=== PATIENT | male | born 1940 | race Caucasian/White ===

== ENCOUNTER 2019-07-23 18:03 | Emergency (ER) | payer MEDICARE ==
[2019-07-23 18:13] VITALS: BP 158/93; PULSE 91
--- NOTE | 2019-07-23 18:19 | EDM.PDOC ---
ED HPI GENERAL MEDICAL PROBLEM - General Chief Complaint: Laceration Stated Complaint: LEFT POINTER FINGER LACERATION Time Seen by Provider: 07/23/19 18:15 - History of Present Illness INITIAL COMMENTS - FREE TEXT/NARRATIVE: 78-year-old male presents the emergency room with a laceration to his left index finger. Shortly before arrival the patient was using a narrow grinding wheel to cut an old josafat bolt and managed to cut the dorsum of his finger. It bled quite a bit initially but keeping a dressing over this did help slow this down. Patient has no other injuries with this unfortunate event. He is not entirely sure when his last tetanus shot was. Finger-Index Pain Score (Numeric/FACES): 2 - Related Data Allergies Allergy/AdvReac Type Severity Reaction Status Date / Time Penicillins Allergy Rash Verified 07/23/19 18:13 atorvastatin AdvReac Muscle Verified 07/23/19 18:13 Aches glipizide AdvReac Fatigue Verified 07/23/19 18:13 metformin AdvReac Muscle Verified 07/23/19 18:13 Aches pravastatin AdvReac Muscle Verified 07/23/19 18:13 Aches rosuvastatin AdvReac Muscle Verified 07/23/19 18:13 Aches simvastatin AdvReac Muscle Verified 07/23/19 18:13 Aches Home Meds: Home Meds Aspirin [Halfprin] 81 mg PO DAILY 12/16/13 [History] Fish Oil/[place]-3 Fatty Acids [Fish Oil 1,000 MG] 1,000 mg PO BID 12/16/13 [ History] Lisinopril 20 mg PO DAILY 12/16/13 [History] Multivitamin [Multivitamins] 1 tab PO DAILY 12/16/13 [History] Omeprazole [Prilosec] 20 mg PO DAILY 12/16/13 [History] Tamsulosin HCl [Flomax] 0.4 mg PO DAILY #15 cap.er.24h 04/17/16 [Rx] glipiZIDE [Glucotrol XL] 5 mg PO BID 04/17/16 [History] Past Medical History Cardiovascular History: Reports: High Cholesterol, Hypertension Gastrointestinal History: Reports: GERD Musculoskeletal History: Reports: Osteoarthritis Psychiatric History: Reports: Anxiety Endocrine/Metabolic History: Reports: Diabetes, Type II - Past Surgical History HEENT Surgical History: Reports: Cataract Surgery Musculoskeletal Surgical History: Reports: Other (See Below) Social & Family History - Caffeine Use Caffeine Use: Reports: Coffee - Living Situation & Occupation Living situation: Reports: , Alone Occupation: Retired ED ROS GENERAL - Review of Systems Review Of Systems: See Below Constitutional: Reports: No Symptoms Respiratory: Reports: No Symptoms Cardiovascular: Reports: No Symptoms GI/Abdominal: Reports: No Symptoms Musculoskeletal: Reports: Hand Pain ED EXAM, SKIN/RASH Exam: See Below Exam Limited By: No Limitations General Appearance: Alert, No Apparent Distress Respiratory/Chest: No Respiratory Distress, Lungs Clear, Normal Breath Sounds Cardiovascular: Regular Rate, Rhythm, No Edema, No Murmur Extremities: Other (Examination of his left hand shows laceration 3 cm over the dorsum of the left index finger. This is obliquely oriented. It extends over the proximal interphalangeal joint to over the distal interphalangeal joint. Ulnar aspect has some numbness that may be attributed to this recent injury vascular status appears to be okay he is got arthritic changes over his knuckles.) ED SKIN PROCEDURES - Laceration/Wound Repair Left Digit - 2nd (Index) Appearance: Subcutaneous, Mildly Contaminated Distal NVT: No Tendon Injury, Other (On the ulnar aspect he may have a neurologic deficit secondary to the injury) Anesthetic Type: Digital Local Anesthesia - Lidocaine (Xylocaine): 1% Plain Local Anesthetic Volume: 2cc Skin Prep: Saline Exploration/Debridement/Repair: Wound Explored, In a Bloodless Field, Explored to Base Lac/Wound length In cm: 3 Suture Size: 4-0 # of Sutures: 5 Suture Type: Mattress (Horizontal mattress stitches were placed good wound approximation) Tetanus Status Addressed: Yes (Updated) Complications: No Progress/Comments: Patient had an oblique 3 cm laceration that extended over the dorsum of the proximal interphalangeal joint to just distal to the distal interphalangeal joint. The patient has some scar type tissue in there and he has arthritic changes at his knuckles that required some adjustment of the suture placement. Overall the patient had a good repair he lost some tissue secondary to the with the grinding wheel. But this should heal up just fine Course - Vital Signs Last Recorded V/S: Last Vital Signs Temp 36.6 C 07/23/19 18:10 Pulse 91 07/23/19 18:10 Resp 18 07/23/19 18:10 BP 158/93 H 07/23/19 18:10 Pulse Ox 94 L 07/23/19 18:10 - Orders/Labs/Meds Orders: Active Orders 24 hr Category Date Time Status Vaccines to be Administered [RC] PER UNIT ROUTINE Care 07/23/19 18:25 Active Meds: Medications Discontinued Medications Generic Name Dose Route Start Last Admin Trade Name Jeannine PRN Reason Stop Dose Admin Diphtheria/Tetanus/Acell Pertussis 0.5 ml 07/23/19 18:25 07/23/19 18:31 Adacel IM 07/23/19 18:26 0.5 ml .ONCE ONE Administration Lidocaine HCl 10 ml 07/23/19 18:26 07/23/19 18:31 Xylocaine 1% INJECT 07/23/19 18:27 10 ml ONETIME ONE Administration Departure - Departure Time of Disposition: 19:02 Disposition: Home, Self-Care 01 Clinical Impression: Laceration of index finger - Discharge Information Referrals: Hardy Fatima MD [Primary Care Provider] - Forms: ED Department Discharge Additional Instructions: Return to the emergency room with any questions problems or concerning symptoms. Return with any signs of infection. Keep the wound site absolutely clean and dry for minimum of 48 hours. After this he can let water gently run over the area but only for a few seconds then gently dab dry. Suture removal in 12 days. You were placed in a splint I would use this all the time for the next week and then during activity after that. Sepsis Event Note - Evaluation Sepsis Screening Result: No Definite Risk - Focused Exam Vital Signs: Vital Signs Temp Pulse Resp BP Pulse Ox 07/23/19 18:10 36.6 C 91 18 158/93 H 94 L Date Exam was Performed: 07/23/19 Time Exam was Performed: 19:06 - My Orders Last 24 Hours: My Active Orders 07/23/19 18:25 Vaccines to be Administered [RC] PER UNIT ROUTINE - Assessment/Plan Last 24 Hours: My Active Orders 07/23/19 18:25 Vaccines to be Administered [RC] PER UNIT ROUTINE
[2019-07-23] MEDS ORDERED: Diphtheria,Pertussis(Acell),Tetanus Vaccine 0.5 ML Syringe IM ONE (18:25)
[2019-07-23] MEDS ORDERED: Lidocaine 1% 10 ML MDV INJECT ONE (18:26)
== END 2019-07-23 19:10 | disposition home or self-care (01) ==
LOC: JD.ED 18:03
DX: S61.211A Laceration without foreign body of left index finger without damage to nail, initial encounter (principal); Z23 Encounter for immunization; E11.9 Type 2 diabetes mellitus without complications; I10 Essential (primary) hypertension; K21.9 Gastro-esophageal reflux disease without esophagitis; E78.00 Pure hypercholesterolemia, unspecified; Z79.82 Long term (current) use of aspirin; Z79.899 Other long term (current) drug therapy; Z79.4 Long term (current) use of insulin; Z88.8 Allergy status to other drugs, medicaments and biological substances; W26.8XXA Contact with other sharp object(s), not elsewhere classified, initial encounter
CPT/HCPCS: 12002; 90471; 90715; 99283; J2001; 99282

== ENCOUNTER 2020-05-02 19:32 | Emergency (ER) | payer MEDICARE ==
[2020-05-02 19:50] VITALS: BP 165/91; PULSE 114
[2020-05-02] MEDS ORDERED: Ondansetron 4 MG Tab.DIS PO ONE (19:55)
[2020-05-02] MEDS ORDERED: predniSONE 20 MG Tab PO ONE (19:56)
[2020-05-02] MEDS ORDERED: Azithromycin 200 MG/5 ML Susp 30 ML Bottle PO ONE (19:57)
[2020-05-02] MEDS ORDERED: Azithromycin 250 MG Tab PO ONE (19:59)
--- NOTE | 2020-05-02 20:36 | EDM.PDOC ---
ED HPI GENERAL MEDICAL PROBLEM - General Chief Complaint: General Stated Complaint: COUGH WEAK CONGESTION Time Seen by Provider: 05/02/20 20:11 Source of Information: Reports: Patient History Limitations: Reports: No Limitations - History of Present Illness INITIAL COMMENTS - FREE TEXT/NARRATIVE: Mr. Raya is a pleasant 79-year-old gentleman who now presents the ED stating that he has had 2 days of a decreased appetite, nausea without emesis, and a cough productive of dark yellow sputum. No recent fever. No vomiting or diarrhea. The patient also reports that he has had about 2 weeks of "decreased motivation". The patient states that he has been taking both Robitussin and cough drops, both of which have been helping with his cough. The patient went on to say that he received a letter from the [facility] that if he went down there, he could receive the COVID vaccine. It appears that the patient thought he could come to this ED to get the vaccine, stating "It's a long way down there." Here in the ED, the patient's initial BP is found to be elevated at 165/91, with a tachycardia of 114 bpm. He is afebrile, saturating 97% on room air. Prior to 2 days ago, the patient denies having a recent fever, chills, sore throat, ear pain, nasal or sinus congestion, cough, dyspnea, chest pain, palpitations, nausea, vomiting, constipation, diarrhea, abdominal pain, urinary symptoms, recent weight gain or weight loss, recent bloody bowel movements or black bowel movements, recent joint aches, headaches, or rashes. The patient's PCP is Dr. Hardy Fatima, however, he also goes to the [facility]. He states that he received an influenza vaccine in December 2019. - Related Data Allergies Allergy/AdvReac Type Severity Reaction Status Date / Time Penicillins Allergy Rash Verified 05/02/20 19:51 atorvastatin AdvReac Muscle Verified 05/02/20 19:51 Aches glipizide AdvReac Fatigue Verified 05/02/20 19:51 metformin AdvReac Muscle Verified 05/02/20 19:51 Aches pravastatin AdvReac Muscle Verified 05/02/20 19:51 Aches rosuvastatin AdvReac Muscle Verified 05/02/20 19:51 Aches simvastatin AdvReac Muscle Verified 05/02/20 19:51 Aches Home Meds: Home Meds Aspirin [Halfprin] 81 mg PO DAILY 12/16/13 [History] Fish Oil/[place]-3 Fatty Acids [Fish Oil 1,000 MG] 1,000 mg PO BID 12/16/13 [History] Lisinopril 20 mg PO DAILY 12/16/13 [History] Multivitamin [Multivitamins] 1 tab PO DAILY 12/16/13 [History] Omeprazole [Prilosec] 20 mg PO DAILY 12/16/13 [History] Tamsulosin HCl [Flomax] 0.4 mg PO DAILY #15 cap.er.24h 04/17/16 [Rx] glipiZIDE [Glucotrol XL] 5 mg PO BID 04/17/16 [History] Past Medical History Cardiovascular History: Reports: High Cholesterol, Hypertension Gastrointestinal History: Reports: GERD Genitourinary History: Reports: BPH Musculoskeletal History: Reports: Osteoarthritis Psychiatric History: Reports: Anxiety Endocrine/Metabolic History: Reports: Diabetes, Type II - Infectious Disease History Infectious Disease History: Reports: Chicken Pox, Measles, Mumps - Past Surgical History HEENT Surgical History: Reports: Cataract Surgery (right only) GI Surgical History: Reports: Colonoscopy (x 5 or 6) Social & Family History - Tobacco Use Tobacco Use Status *Q: Never Tobacco User Second Hand Smoke Exposure: No - Caffeine Use Caffeine Use: Reports: Coffee - Alcohol Use Alcohol Use History: Yes Alcohol Use Frequency: Rarely - Recreational Drug Use Recreational Drug Use: No - Living Situation & Occupation Living situation: Reports: , Alone Occupation: Retired ED ROS GENERAL - Review of Systems Review Of Systems: Comprehensive ROS is negative, except as noted in HPI. ED EXAM, GENERAL - Physical Exam Exam: See Below Exam Limited By: No Limitations General Appearance: Alert, WD/WN, No Apparent Distress Eye Exam: Bilateral Eye: EOMI, Normal Inspection Ears: Normal External Exam, Hearing Grossly Normal Nose: Normal Inspection Throat/Mouth: Normal Inspection, Normal Lips, Normal Voice, No Airway Compromise Head: Atraumatic, Normocephalic Neck: Normal Inspection, Full Range of Motion Respiratory/Chest: No Respiratory Distress, Lungs Clear, Normal Breath Sounds, No Accessory Muscle Use. No: Decreased Breath Sounds, Crackles, Rhonchi, Wheezing, Stridor, Prolonged Expiration Cardiovascular: Normal Peripheral Pulses, No Edema, No Gallop, No JVD, No Murmur, No Rub, Tachycardia (regular) Peripheral Pulses: 3+: Radial (L), Radial (R) GI/Abdominal: Normal Bowel Sounds, Soft, Non-Tender, No Organomegaly, No Distention, No Abnormal Bruit, No Mass Back Exam: Normal Inspection, Full Range of Motion, NT Extremities: Normal Inspection, Normal Range of Motion, No Pedal Edema, Normal Capillary Refill Neurological: Alert, Oriented, CN II-XII Intact, Normal Cognition, No Motor/Sensory Deficits Psychiatric: Normal Affect Skin Exam: Warm, Dry, Intact, Normal Color, No Rash Course - Vital Signs Last Recorded V/S: Last Vital Signs Temp 37.4 C 05/02/20 19:47 Pulse 114 H 05/02/20 19:47 Resp 20 05/02/20 19:47 BP 165/91 H 05/02/20 19:47 Pulse Ox 97 05/02/20 19:47 - Orders/Labs/Meds Orders: Active Orders 24 hr Category Date Time Status EKG Documentation Completion [RC] STAT Care 05/02/20 20:30 Active Chest 2V [CR] Stat Exams 05/02/20 20:29 Ordered CBC WITH MANUAL DIFF [HEME] Stat Lab 05/02/20 20:29 Ordered COMPREHENSIVE METABOLIC PN,CMP [CHEM] Stat Lab 05/02/20 20:29 Ordered COVID-19/FLU A+B [MOLEC] Stat Lab 05/02/20 20:31 Ordered D-DIMER QUANTITATIVE [COAG] Stat Lab 05/02/20 20:30 Ordered LACTIC ACID [CHEM] Stat Lab 05/02/20 20:30 Ordered MAGNESIUM [CHEM] Stat Lab 05/02/20 20:29 Ordered TROPONIN I [CHEM] Stat Lab 05/02/20 20:29 Ordered TSH [CHEM] Stat Lab 05/02/20 20:29 Ordered Meds: Medications Discontinued Medications Generic Name Dose Route Start Last Admin Trade Name Freq PRN Reason Stop Dose Admin Azithromycin 40 mg 05/02/20 19:57 Zithromax 200 Mg/5 Ml Susp PO 05/02/20 19:58 ONETIME ONE Azithromycin 500 mg 05/02/20 19:59 Zithromax PO 05/02/20 20:00 ONETIME ONE Ondansetron HCl 4 mg 05/02/20 19:55 Zofran Odt PO 05/02/20 19:56 ONETIME ONE Prednisone 40 mg 05/02/20 19:56 Prednisone PO 05/02/20 19:57 ONETIME ONE - Re-Assessments/Exams Free Text/Narrative Re-Assessment/Exam: 05/02/20 20:32 As above, the patient has had 2 days of decreased appetite with nausea and a cough productive of yellowish sputum, but no recent fever, emesis, or diarrhea. He also reports 2 weeks of "decreased motivation". He is found at triage to be tachycardic at 114 bpm, however, his physical exam is entirely unremarkable. I have ordered a work-up that includes several blood tests, a chest x-ray, an ECG, and a swab for both influenza and the SARS-CoV-2 virus. 05/02/20 20:40 Notified by Yuliya ROLLE that the patient wants to leave without undergoing any testing. As per the HPI, it appears that the patient was just here to get the COVID vaccine, which, of course, is not available from the ED. 05/02/20 20:42 Notified by Yuliya ROLLE that the patient eloped ED without waiting for discharge instructions. Departure - Departure Time of Disposition: 20:41 Disposition: Eloped 07 Condition: Good Clinical Impression: Patient requests medication, not given, Cough, Decreased appetite, Nausea - Discharge Information *PRESCRIPTION DRUG MONITORING PROGRAM REVIEWED*: Not Applicable *COPY OF PRESCRIPTION DRUG MONITORING REPORT IN PATIENT ALIA: Not Applicable Referrals: Hardy Fatima MD [Primary Care Provider] - Forms: ED Department Discharge Sepsis Event Note (ED) - Evaluation Sepsis Screening Result: No Definite Risk - Focused Exam Vital Signs: Vital Signs Temp Pulse Resp BP Pulse Ox 05/02/20 19:47 37.4 C 114 H 20 165/91 H 97 - My Orders Last 24 Hours: My Active Orders 05/02/20 20:29 Chest 2V [CR] Stat CBC WITH MANUAL DIFF [HEME] Stat COMPREHENSIVE METABOLIC PN,CMP [CHEM] Stat MAGNESIUM [CHEM] Stat TROPONIN I [CHEM] Stat TSH [CHEM] Stat 05/02/20 20:30 EKG Documentation Completion [RC] STAT D-DIMER QUANTITATIVE [COAG] Stat LACTIC ACID [CHEM] Stat 05/02/20 20:31 COVID-19/FLU A+B [MOLEC] Stat - Assessment/Plan Last 24 Hours: My Active Orders 05/02/20 20:29 Chest 2V [CR] Stat CBC WITH MANUAL DIFF [HEME] Stat COMPREHENSIVE METABOLIC PN,CMP [CHEM] Stat MAGNESIUM [CHEM] Stat TROPONIN I [CHEM] Stat TSH [CHEM] Stat 05/02/20 20:30 EKG Documentation Completion [RC] STAT D-DIMER QUANTITATIVE [COAG] Stat LACTIC ACID [CHEM] Stat 05/02/20 20:31 COVID-19/FLU A+B [MOLEC] Stat
== END 2020-05-02 20:53 | disposition left against medical advice (07) ==
LOC: JD.ED 19:32
DX: R63.0 Anorexia (principal); R05 Cough; R11.0 Nausea; I10 Essential (primary) hypertension; N40.0 Benign prostatic hyperplasia without lower urinary tract symptoms; M19.90 Unspecified osteoarthritis, unspecified site; E11.9 Type 2 diabetes mellitus without complications; K21.9 Gastro-esophageal reflux disease without esophagitis; Z79.899 Other long term (current) drug therapy; Z88.0 Allergy status to penicillin; Z79.82 Long term (current) use of aspirin; Z79.84 Long term (current) use of oral hypoglycemic drugs; Z88.8 Allergy status to other drugs, medicaments and biological substances
CPT/HCPCS: 99283; 99284-25

== ENCOUNTER 2021-07-04 07:50 | Day surgery (SDC) | payer MEDICARE, OTHER ==
[~2021-07-04 07:50] MED LIST: Lactated Ringers 1,000 ML IV SCH; Lidocaine 1%/Sod Bicarbonate in NS 8.4% 1 ML Syringe IDERM PRN; Morphine 8 MG, EPINEPHrine 0.3 MG, Cefuroxime 750 MG, Ketorolac 30 MG, Sodium Chloride ... PRN; Sodium Chloride 0.9% 10 ML Syringe FLUSH PRN; Sodium Chloride 0.9% 10 ML Syringe FLUSH SCH
[2021-07-04] MEDS ORDERED: Lidocaine 1% 4 ML ONE (09:46)
[2021-07-04] MEDS ORDERED: Propofol 200 MG/20 ML SDV ONE ×2 (09:46)
[2021-07-04] MEDS ORDERED: Midazolam 1 MG/ML 2 ML SDV ONE (09:46)
[2021-07-04] MEDS ORDERED: ceFAZolin 1 GM Vial ONE (09:47)
[2021-07-04] MEDS ORDERED: fentaNYL 100 MCG/2 ML SDV ONE (09:47)
[2021-07-04] MEDS ORDERED: Lactated Ringers 1,000 ML ONE (10:53)
[2021-07-04] MEDS ORDERED: ePHEDrine 50 MG/ML SDV ONE (11:07)
[2021-07-04] MEDS ORDERED: Ondansetron 4 MG/2 ML SDV IVPUSH PRN (11:22)
[2021-07-04] MEDS ORDERED: fentaNYL 100 MCG/2 ML SDV IVPUSH PRN (11:22)
[2021-07-04] MEDS: Vancomycin 1 GM SDV ONE ×2 (11:35→11:56)
[2021-07-04] MEDS ORDERED: Ondansetron 4 MG/2 ML SDV ONE (12:08)
[2021-07-04] MEDS ORDERED: Ropivacaine 0.5% 5 MG/ML 30 ML SDV ONE (12:45)
[2021-07-04] MEDS ORDERED: EPINEPHrine 1 MG/ML SDV ONE (12:46)
[2021-07-04 15:43] VITALS: BP 132/85; PULSE 68
== END 2021-07-04 15:35 | disposition home or self-care (01) ==
LOC: JD.SDS 07:50
PROVIDERS: ATTEND Orthopaedic Surgery
DX: M17.12 Unilateral primary osteoarthritis, left knee (principal); G47.30 Sleep apnea, unspecified; E11.9 Type 2 diabetes mellitus without complications; I10 Essential (primary) hypertension; Z88.8 Allergy status to other drugs, medicaments and biological substances; Z88.0 Allergy status to penicillin; Z79.899 Other long term (current) drug therapy; Z79.84 Long term (current) use of oral hypoglycemic drugs; Z79.82 Long term (current) use of aspirin; Z98.890 Other specified postprocedural states
CPT/HCPCS: 27447; 36415; 73560; 82947; 85610; 85730; 97110; 97116; 97161; C1713; C1776; J0171; J0690; J0697; J1885; J2250; J2270; J2370; J2405; J2704; J2795; J3010; J3370; J7120; 01402; 64447; 76942; 99100

== ENCOUNTER 2022-06-14 10:40 | Emergency (ER) | payer MEDICARE, OTHER ==
[2022-06-14] MEDS ORDERED: Sodium Chloride 0.9% 10 ML Syringe FLUSH PRN (11:36)
[2022-06-14] MEDS ORDERED: Sodium Chloride 0.9% 1,000 ML IV ONE (11:46)
[2022-06-14 12:03] LABS: CORONAVIRUS COVID-19 NAA POSITIVE (NEGATIVE)
[2022-06-14 15:20] VITALS: BP 135/71; PULSE 85
== END 2022-06-14 14:44 | disposition home or self-care (01) ==
LOC: JD.ED 10:40
DX: U07.1 COVID-19 (principal); I10 Essential (primary) hypertension; K21.9 Gastro-esophageal reflux disease without esophagitis; M19.90 Unspecified osteoarthritis, unspecified site; E11.9 Type 2 diabetes mellitus without complications; Z88.0 Allergy status to penicillin; Z88.8 Allergy status to other drugs, medicaments and biological substances; Z79.899 Other long term (current) drug therapy; Z79.84 Long term (current) use of oral hypoglycemic drugs
CPT/HCPCS: 0241U; 36415; 70450; 71045; 80053; 81001; 83735; 85025; 86140; 96360; 99285; J3490; J7030; 99283

== ENCOUNTER 2022-08-06 11:57 | Emergency (ER) | payer MEDICARE, OTHER ==
[2022-08-06] MEDS ORDERED: Sodium Chloride 0.9% 1,000 ML IV ONE ×2 (12:54→14:13)
[2022-08-06 13:43] LABS: CORONAVIRUS COVID-19 NAA POSITIVE (NEGATIVE)
[2022-08-06 16:32] VITALS: BP 146/79; PULSE 98
== END 2022-08-06 16:15 | disposition home or self-care (01) ==
LOC: JD.ED 11:57
DX: U07.1 COVID-19 (principal); I10 Essential (primary) hypertension; K21.9 Gastro-esophageal reflux disease without esophagitis; M19.90 Unspecified osteoarthritis, unspecified site; E11.9 Type 2 diabetes mellitus without complications; Z88.0 Allergy status to penicillin; Z88.8 Allergy status to other drugs, medicaments and biological substances; Z79.899 Other long term (current) drug therapy; Z79.84 Long term (current) use of oral hypoglycemic drugs
CPT/HCPCS: 0241U; 36415; 80053; 81001; 85025; 86140; 93005; 96360; 96361; 99285; J7030; 93010; 99283

== ENCOUNTER 2024-12-15 10:35 | Emergency (ER) | payer MEDICARE ==
[2024-12-15 11:18] LABS: BASOPHILS ABSOLUTE AUTO 0.1 K/mm3 (0.0-0.2); BASOPHILS PERCENT AUTO 1.3 % (0.0-1.0); EOSINOPHILS ABSOLUTE AUTO 0.1 K/mm3 (0.0-0.4); EOSINOPHILS PERCENT AUTO 1.3 % (0.0-6.0); IMMATURE GRAN ABSOLUTE AUTO 0.01 K/mm3 (0.00-0.05); IMMATURE GRAN PERCENT AUTO 0.1 % (0.0-0.4); LYMPHOCYTES ABSOLUTE AUTO 1.7 K/mm3 (1.0-4.8); LYMPHOCYTES PERCENT AUTO 24.4 % (24.0-44.0); MEAN PLATELET VOLUME 8.9 fl (9.4-12.4); MONOCYTES ABSOLUTE AUTO 0.5 K/mm3 (0.0-0.8); MONOCYTES PERCENT AUTO 7.6 % (0.0-8.0); NEUTROPHILS ABSOLUTE AUTO 4.5 K/mm3 (1.8-7.7); NEUTROPHILS PERCENT AUTO 65.3 % (41.0-71.0); NRBC ABSOLUTE 0.00 (0.00-0.02); NRBC PERCENT 0.0 % (0.0-0.2); PLATELET COUNT,PLT 279 K/mm3 (150-400); RED BLOOD CELL COUNT 5.39 M/mm3 (4.52-5.90); WHITE BLOOD CELL COUNT,WBC 6.94 K/mm3 (3.9-11.3)
[2024-12-15 11:25] LABS: INR 1.02
[2024-12-15 11:38] LABS: A/G RATIO 1.0 (1-2); ALANINE AMINOTRANSFERASE,ALT 10.0 U/L (16-63); ASPARTATE AMNIOTRANSFERASE,AST 21.0 U/L (15-37); BILIRUBIN TOTAL 0.8 mg/dL (0.2-1.0); BLOOD UREA NITROGEN,BUN 13.0 mg/dL (7-18); CARBON DIOXIDE,CO2 25.0 mEq/L (21-32); CHLORIDE,CL 100.0 mEq/L (98-107); CREATINE KINASE,CK 43.0 U/L (39-308); CREATININE 1.2 mg/dL (0.7-1.3); EST CRCL DRUG DOSING (CG) 45.01 mL/min; ESTIMATED GFR 59.0 mL/min (>60); GLUCOSE RANDOM 214.0 mg/dL (70-99); POTASSIUM,K 3.9 mEq/L (3.5-5.1); PROTEIN TOTAL,TP 7.2 g/dl (6.4-8.2); SODIUM,NA 135.0 mEq/L (136-145); TROPONIN I HIGH SENSITIVITY 7.0 pg/mL (<=76)
[2024-12-15 15:17] VITALS: BP 126/67; PULSE 91
== END 2024-12-15 15:10 | disposition home or self-care (01) ==
LOC: SUPCPDRO 10:35 → JD.ED 10:35
DX: R55 Syncope and collapse (principal); R11.2 Nausea with vomiting, unspecified; E78.00 Pure hypercholesterolemia, unspecified; I10 Essential (primary) hypertension; K21.9 Gastro-esophageal reflux disease without esophagitis; E11.9 Type 2 diabetes mellitus without complications; Z88.0 Allergy status to penicillin; Z88.6 Allergy status to analgesic agent; Z79.899 Other long term (current) drug therapy; Z79.84 Long term (current) use of oral hypoglycemic drugs; Z86.16 Personal history of COVID-19
CPT/HCPCS: 36415; 70450; 71045; 80053; 82550; 83690; 83735; 83880; 84484; 85025; 85610; 93005; 96360; 99285; J7030; 93010; 99283